=== PATIENT | male | born 1980 | race Caucasian/White ===

== ENCOUNTER 2020-06-10 07:30 | Day surgery (SDC) | payer OTHER, BC ==
[~2020-06-10] VITALS: Ht 180.3 cm; Wt 95.5 kg
--- NOTE | 2020-06-10 10:26 | NUR ---
06/10/20 1026 Fior Agustin 1004 PT ARRIVED IN PACU NON RESPONSIVE TO NOXIOUS STIMULI WITH OPA IN PLACE. ICE TO ABD. 1017 PT REACTIVE. OPA REMOVED. SITTING UP IN BED. 1020 OXYGEN REMOVED. NO C/O'S. 1025 TAKING SIPS OF WATER AND VISITING WITH STAFF.
--- NOTE | 2020-06-10 10:38 | NUR ---
PT IS BACK TO DS FROM PACU. SIGNIFICANT OTHER AT THE BEDSIDE. CALL LIGHT WITHIN REACH. WATER ON BEDSIDE TABLE. NO ADDITIONAL NEEDS AT THIS TIME.
[2020-06-10] MEDS ORDERED: HYDROCODON-ACE1 EAC8 PO (10:58)
--- NOTE | 2020-06-10 11:11 | NUR ---
LE 1100: PT IS ASSISTED UP OOB WITH STANDBY ASSIST TO THE BATHROOM. HE IS ABLE TO VOID 400MLS. HE AMBULATES HIMSELF BACK TO HIS ROOM. HE IS REPORTING AN INCREASE IN PAIN 6/10, HE IS GIVEN PAIN MEDS.
--- NOTE | 2020-06-10 11:40 | OR ---
[facility] [address] [place], [place] [address] Signed DATE OF OPERATION: 06/10/2020 SURGEON: Herson Loera MD PREOPERATIVE DIAGNOSIS: Nonreducible umbilical hernia (7 mm). POSTOPERATIVE DIAGNOSIS: Nonreducible umbilical hernia (7 mm). PROCEDURE: Primary umbilical herniorrhaphy with intraabdominal Ventralex mesh (4.3 cm). ESTIMATED BLOOD LOSS: Minimal. 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 He felt pain and burning at his umbilicus. He noticed a nonreducible lump at the umbilicus later that day. He had been to his supervisor cloth winding that same day. Since he had no primary care provider, he had gone to the urgent care clinic on 02/26/2020. He was diagnosed with his nonreducible umbilical hernia. Ultrasound confirmed the above findings. He was therefore asked to see me with respect to the above. In the office, I gave Adebayo a booklet on hernias and I reviewed the sections with him on umbilical hernias. We reviewed primary suture repair versus mesh repair. He understands expected intraop and postop course. We did review the risks including, but not limited to bleeding, infection, scarring, change in contour of the skin, damage to bowel, infection of mesh requiring removal, recurrent hernias and chronic pain. He had expressed understanding and wished to proceed. DESCRIPTION OF PROCEDURE: I met with Adebayo and his in our preop area. We marked the umbilicus appropriately. After this, he was taken in the operating room and placed in a supine position under general LMA anesthesia. He was given preoperative antibiotics along with subcutaneous heparin. SCDs were utilized. He was then prepped and draped in the usual sterile fashion. After this, a standard transverse infraumbilical incision was made and carried down around the umbilicus bluntly and with the cautery. The umbilical skin was from the fascial defect with the help of the cautery. He had a 3 cm circular ball of fat herniated through the fascial defect. It was amputated and passed off the Electronically Signed By: HERSON LOERA MD 06/10/20 1140 PATIENT NAME: ADEBAYO RETANA OPERATIVE REPORT DATE OF : 84 REPORT #: [id number] PHYSICIAN: HERSON LOERA MD PCP: SARITA WILLIAMSON NP REPORT IS CONFIDENTIAL AND NOT TO BE RELEASED WITHOUT AUTHORIZATION [facility] [address] [place], [place] [address] Signed field with the help of the cautery. We then placed our 4.3 cm round Ventralex mesh into the abdomen and brought it up, flushed against the posterior abdominal wall. The fascial defect was closed transversely with a running #1 Prolene suture. Several passes of the suture went through the tab on the mesh to help hold it in place. The tab was then cut flushed with the abdominal wall. Local anesthetic was injected in the abdominal wall and subcutaneous tissues. The wound was irrigated and suctioned out until clear. The umbilical skin was held down to the midline fascia with an interrupted two PDS suture. The dermis was reapproximated with interrupted 3-0 subcuticular Monocryl sutures. The skin edges were reapproximated with a running 5-0 fast absorbing plain gut suture. Dry gauze and tape were then applied. After this, Adebayo was awakened from his anesthesia, extubated in the OR, and taken to recovery room in stable condition. Herson Loera MD ALB/MODL /[id number] cc: KAYCEE Kaba MD Jennifer Barden, NP Copies: HERSON LOERA MD ~ Electronically Signed By: HERSON LOERA MD 06/10/20 1140 PATIENT NAME: ADEBAYO RETANA OPERATIVE REPORT DATE OF : 84 REPORT #: [id number] PHYSICIAN: HERSON LOERA MD PCP: SARITA WILLIAMSON NP REPORT IS CONFIDENTIAL AND NOT TO BE RELEASED WITHOUT AUTHORIZATION
--- NOTE | 2020-06-10 12:13 | NUR ---
PT IS GIVEN VERBAL DC INSTRUCTIONS WITH PRESENT, THEY BOTH VERBALIZE UNDERSTANDING. QUESTIONS ARE ASKED AND ANSWERED. THEY BOTH GET TO TALK WITH DR. LOERA. PT IS TAKEN TO VEHICLE IN , HE IS ABLE TO TRANSFER HIMSELF FROM TO VEHICLE.
== END 2020-06-10 12:00 | disposition home or self-care (01) ==
LOC: DS 07:30
PROVIDERS: ATTEND Colon & Rectal Surgery
PROC: 0WUF0JZ Supplement Abdominal Wall with Synthetic Substitute, Open Approach (ICD-10-PCS; principal; 2020-06-10 08:15)
DX: K42.0 Umbilical hernia with obstruction, without gangrene (principal); E66.3 Overweight; Z68.29 Body mass index [BMI] 29.0-29.9, adult; Z87.891 Personal history of nicotine dependence
CPT/HCPCS: 00750; C1781; J0330; J0690; J1100; J1644; J1885; J2250; J2405; J2704; J2765; J3010; J7121